=== PATIENT | male | born 1945 | race Caucasian/White ===

== ENCOUNTER 2017-06-15 15:30 | Emergency (ER) | payer OTHER, MEDICARE ==
--- NOTE | 2017-06-15 16:51 | EDPHY ---
H & P Smoking Status: Never smoked Time Seen by Provider: 06/15/17 16:34 HPI/ROS: CHIEF COMPLAINT: Short of breath, dizzy, lightheaded HISTORY OF PRESENT ILLNESS: 71-year-old male presents to the emergency department by private vehicle feeling short of breath, dizzy and lightheaded. The patient is visiting from [place]. He states that he has felt short of breath over last few weeks. He saw his primary care provider in [place] and had a chest x-ray which was negative. He was told have a cardiac workup, however he came to [place] for work. He denies pleuritic chest pain. He has no pain in his chest. No headache. He states that he has an avid runner and has not had the energy to do this now. He states that he was winded just walking up the [place] when he landed yesterday which is very unusual for him. He denies abdominal pain. No fevers or chills. No URI symptoms. REVIEW OF SYSTEMS: Constitutional: Dizzy, lightheaded. No fever, no chills. Eyes: No double or blurry vision. ENT: No sore throat. Respiratory: Short of breath as above. No cough. Cardiac: No chest pain. Gastrointestinal: No abdominal pain, vomiting or diarrhea. Genitourinary: No dysuria. Musculoskeletal: No neck or back pain. Skin: No rashes. Neurological: No headache. (Al,Siomara M) Past Medical/Surgical History: Orthopedic injuries (Al,Siomara M) Social History: . Lives in [place] (Al,Siomara M) Physical Exam: General Appearance: Alert, no distress. 140/95, heart rate 84, 92% on room air Eyes: Pupils equal and round. Extraocular motions are all intact. ENT: Mouth: Mucous membranes moist. Respiratory: No wheezing, rhonchi, or rales, lungs are clear to auscultation. Cardiovascular: Regular rate and rhythm. Gastrointestinal: Abdomen is soft and nontender, no masses, no rebound or guarding, bowel sounds normal. Neurological: Alert and oriented x 3, cranial nerves II through XII grossly intact Skin: Warm and dry, no rashes. Musculoskeletal: Nontender to palpate along the cervical, thoracic or lumbar spine. Neck is supple. Extremities: Full range of motion and no peripheral edema. Splint noted to right foot and ankle. Nontender to palpate in his calves bilaterally. Psychiatric: Patient is oriented X 3, there is no agitation. (Siomara Melendez) Constitutional: Initial Vital Signs Temperature (C) 36.7 C 06/15/17 15:31 Heart Rate 84 06/15/17 15:31 Respiratory Rate 16 06/15/17 15:31 Blood Pressure 148/95 H 06/15/17 15:31 O2 Sat (%) 92 06/15/17 15:31 O2 Delivery Mode Room Air Allergies/Adverse Reactions: CATS Allergy (Severe, Uncoded 10/23/10 15:45) EYES SWELLING Home Medications: Medication Instructions Recorded Xanax 06/15/17 Medical Decision Making - Diagnostics Imaging: Discussed imaging studies w/ machine scallop cutter Radiologist - Diagnostics EKG Interpretation: EKG interpreted by me shows normal sinus rhythm normal interval and axis. QRS shows right bundle branch block. Otherwise no significant ST elevation or depression. No arrhythmia. The rate is 77. (Nico Estrada) ED Course/Re-evaluation: 71-year-old male presents to the emergency department with dyspnea. He has no associated chest pain with this. He states symptoms have been present for over 1 month. He is visiting from [place]. I was concerned about possible pulmonary embolism. I discussed the case with Dr. Nico Estrada, secondary supervising physician, who did not directly evaluate the patient but agrees with treatment and plan. CT pulmonary angiogram reveals no evidence of PE. He does have 2 small pulmonary nodules that will require follow up. He also has evidence of interstitial pulmonary fibrosis. Troponin was normal. BNP was negative. EKG revealed normal sinus rhythm. See interpretation in trace master. This was interpreted by Dr. Nico Estrada. The patient would like to be discharged home. I encouraged close follow-up with his primary care provider as well as artists' booking representative when he returns to [place] tomorrow. He was instructed to return to the emergency department if he felt short of breath, chest pain, or if he felt worse in any way. (Siomara Melendez) I did not see this patient while he was in the emergency department. However his care is discussed with the PA while the patient was in the department. I agree with treatment plan and management (Nico Estrada) Differential Diagnosis: Shortness of breath including but not limited to pulmonary infectious process, COPD, asthma, pulmonary embolus and congestive heart failure. (Siomara Melendez) - Data Points Laboratory Results: Laboratory Results 06/15/17 16:35 06/15/17 16:35 Departure - Departure Disposition: Home, Routine, Self-Care Clinical Impression: Interstitial pulmonary fibrosis Dyspnea Qualifiers: Dyspnea type: unspecified Qualified Code(s): R06.00 - Dyspnea, unspecified Condition: Good Instructions: Dyspnea (ED) Additional Instructions: You should have close follow-up with a artists' booking representative when you return to [place]. You have evidence of interstitial pulmonary fibrosis under CT scan. You have no evidence of a pulmonary embolism or blood clot on her scan. You also have 2 pulmonary nodules that will require close follow-up with a artists' booking representative for repeat imaging. Return to the emergency department if you feel increasingly short of breath, pain in her chest, fever, or if you feel worse in any way. Referrals: James Pack MD [Medical Doctor] - As per Instructions (Plastics Engineering Teacher on-call)
--- NOTE | 2017-06-15 16:53 | CPEKG ---
Heart Rate: 77 RR Interval: 779 P-R Interval: 200 QRSD Interval: 130 QT Interval: 408 QTC Interval: 462 P [place]: 44 QRS [place]: 61 T Wave [place]: 17 EKG Severity - ABNORMAL ECG - EKG Impression: SINUS RHYTHM EKG Impression: RIGHT BUNDLE BRANCH BLOCK Electronically Signed By: Nico Estrada 15-Jun-2017 17:17:10
[2017-06-15 17:02] LABS: PLATELET COUNT 185 10^3/uL (150-400)
[2017-06-15] MEDS ORDERED: IOPAMIDOL (ISOVUE 370) 100 ML BTL IV ONE (17:26)
[2017-06-15 20:05] VITALS: BP 130/100
== END 2017-06-15 20:04 | disposition home or self-care (01) ==
DX: J84.10 Pulmonary fibrosis, unspecified (principal)
CPT/HCPCS: 71275; 93005; 99285; Q9967